=== PATIENT | male | born 1960 | race Caucasian/White ===

== ENCOUNTER 2017-02-11 22:36 | Emergency (ER) | payer MEDICAID ==
--- NOTE | 2017-02-11 22:40 | ED Physician Chart ---
Chief Complaint/HPI - Patient Information Date Seen:: 02/11/17 Time Seen:: 22:40 Chief Complaint:: low blood pressure History of Present Illness:: 56-year-old male, diabetic, complains of acute, constant, moderate, low blood pressure that he noticed at home about 30 minutes prior to arrival with systolic 94. Had some associated dizziness which is now resolved. Also reports he had an increased heart rate at 94 bpm. Says he checked his blood sugar at home and was at 110. Started 2 new diabetes medications today which he thinks may have caused the symptoms. Denies numbness, tingling, lightheadedness, chest pain, palpitations, nausea, vomiting, dysuria, gross hematuria, gross blood in stool. Historian:: Patient Review:: Nurse's Note Reviewed Review of Systems - Review of Systems Other: Complete system review otherwise unremarkable except as noted in history of present illness. Past Medical History - Past Medical History Past Medical History: DM Family History: None Social History: Non Smoker, No Alcohol, No Drug Use, Other Surgical History: None Psychiatricy History: None Medication: None Family Medical History - Family Member Mother History Unknown: Yes Physical Exam - Physical Examination Other:: INITIAL VITAL SIGNS: Reviewed by me GENERAL: Alert and interactive. No acute distress HEAD: Head is normocephalic and atraumatic EYES: EOMI. PERRL. No scleral icterus. No conjunctival injection ENT: Moist mucous membranes. NECK: Supple. No masses. Full range of motion RESPIRATORY: No tachypnea. Clear breath sounds bilaterally. No wheezing, rales, or rhonchi CV: Regular rate and rhythm. No murmurs, rubs, or gallops ABDOMEN: Soft, non-distended, non-tender. No guarding. No rebound. No masses. EXTREMITIES: No deformity. No cyanosis. No edema. SKIN: Warm and dry. No obvious rashes. NEUROLOGIC: Alert and oriented. Face is symmetric. Speech is normal. Moves all extremities equally. Motor and sensory distally intact. Labs/Radiology/EKG Results - Lab Results Results: Lab Results 02/11/17 02/11/17 02/11/17 Range/Units 23:03 23:03 23:03 WBC 9.4 (4.8-10.8) Th/cmm RBC 5.31 (4.30-5.70) Mil/cmm Hgb 13.1 L (13.2-17.3) gm/dL Hct 40.5 (39.0-49.0) % MCV 76.2 L (80-99) fl MCH 24.6 L (26.0-30.0) pg MCHC Differential 32.3 (28.0-36.0) pg RDW 13.1 (11.5-20.0) % Plt Count 217 (150-400) Th/cmm MPV 9.2 fl Neutrophils % 62.6 (40.0-80.0) % Lymphocytes % 25.8 (20.0-50.0) % Monocytes % 7.5 (2.0-10.0) % Eosinophils % 3.4 (0.0-5.0) % Basophils % 0.7 (0.0-2.0) % PT 9.1 L (9.5-11.5) SECONDS INR 0.89 (0.5-1.4) PTT (Actin FS) 23.4 L (26.0-38.0) SECONDS Sodium 135 L (136-145) mEq/L Potassium 4.0 (3.5-5.1) mEq/L Chloride 103 (98-107) mEq/L Carbon Dioxide 26.4 (21.0-31.0) mEq/L Anion Gap 9.6 (7.0-16.0) BUN 24 (7-25) mg/dL Creatinine 1.3 (0.7-1.3) mg/dL Est GFR ( Amer) > 60.0 (>90) ml/min Est GFR (Non-Af Amer) > 60.0 ml/min BUN/Creatinine Ratio 18.5 Glucose 228 H (70-105) mg/dL Calcium 10.1 (8.6-10.3) mg/dL Total Bilirubin 0.5 (0.3-1.0) mg/dL AST 22 (13-39) U/L ALT 34 (7-52) U/L Alkaline Phosphatase 42 (34-104) U/L Creatine Kinase 166 (30-223) U/L Total Protein 7.6 (6.0-8.3) gm/dL Albumin 4.3 (4.2-5.5) gm/dL Globulin 3.3 gm/dL Albumin/Globulin Ratio 1.3 (1.0-1.8) - EKG Interpretations Comments:: 12-lead EKG Interpretation by Gale Link MD: Normal Sinus Rhythm with ventricular rate of 88 beats per minute Normal axis Normal intervals No acute ST or T wave changes. No obvious STEMI ED Septic Shock - . Is Septic Shock (SBP<90, OR Lactate>4 mmol\L) present?: No Reassessment (Disposition) - Reassessment Reassessment:: Patient presents with some low blood pressure with systolic blood pressure 94 mmHg at home. Severity and associated increased heart rate which she also was 94 bpm. Very dizzy. Started 2 new diabetes medications today. Checked his blood sugar which is 110. Patient here in the ER asymptomatic. Received IV fluids. Theodore improved. Labs essentially unremarkable. Discussed all findings with the patient. Recommended follow-up with primary care 1-2 days. Return to ER precautions were given. Patient says he understands and agrees with the plan. Reassessment Condition:: Improved - Diagnosis Diagnosis:: Acute hypotension Medical screening examination Diabetes mellitus type 2 - Aftercare/Follow up Instructions Aftercare/Follow-Up Instructions:: Counseled pt regarding lab results/diagnosis & need follow up, Refer to Discharge Instructions - Patient Disposition Discharge/Transfer:: Home Time:: 00:06 Condition at Disposition:: Improved ED Discharge Plan - Patient Disposition Admit/Discharge/Transfer: PT DISCHARGED HOME Condition at Disposition: Improved Instructions: Type 2 Diabetes Mellitus, Adult, Hypotension Additional Instructions: Follow-up with your primary care physician within 1 to 2 days.
[2017-02-11] MEDS ORDERED: Sodium Chloride 0.9% 1,000 ML IV ONE (22:45)
[2017-02-11 23:11] LABS: % BASOPHILS 0.7 % (0.0-2.0); % EOSINOPHILS 3.4 % (0.0-5.0); % LYMPHOCYTES 25.8 % (20.0-50.0); % MONOCYTES 7.5 % (2.0-10.0); % NEUTROPHILS 62.6 % (40.0-80.0); HEMATOCRIT 40.5 % (39.0-49.0); HEMOGLOBIN 13.1 gm/dL (13.2-17.3); MEAN CELL VOLUME 76.2 fl (80-99); MEAN CORPUSCULAR HEMOGLOBIN 24.6 pg (26.0-30.0); MEAN CORPUSCULAR HGB CONC 32.3 pg (28.0-36.0); MEAN PLATELET VOLUME 9.2 fl; NEUTROPHILE ABSOLUTE 5.9 Th/cmm (1.8-8.0); PLATELET COUNT 217 Th/cmm (150-400); RED BLOOD COUNT 5.31 Mil/cmm (4.30-5.70); RED CELL DISTRIBUTION WIDTH 13.1 % (11.5-20.0); WHITE BLOOD COUNT 9.4 Th/cmm (4.8-10.8)
[2017-02-11 23:23] LABS: INR 0.89 (0.5-1.4); PROTHROMBIN TIME (TEST) 9.1 SECONDS (9.5-11.5)
[2017-02-11 23:24] LABS: ALB/GLOB RATIO 1.3 (1.0-1.8); ALKALINE PHOSPHATASE 42 U/L (34-104); ANION GAP 9.6 (7.0-16.0); BILIRUBIN,TOTAL 0.5 mg/dL (0.3-1.0); BUN - UREA NITROGEN 24 mg/dL (7-25); BUN/CREATININE RATIO 18.5; CALCIUM SERUM 10.1 mg/dL (8.6-10.3); CARBON DIOXIDE 26.4 mEq/L (21.0-31.0); CHLORIDE 103 mEq/L (98-107); CREATININE - SERUM 1.3 mg/dL (0.7-1.3); GLUCOSE 228 mg/dL (70-105); SGOT 22 U/L (13-39); SGPT/ALT 34 U/L (7-52); SODIUM SERUM 135 mEq/L (136-145)
== END 2017-02-12 00:53 | disposition home or self-care (01) ==
LOC: ER 22:36
DX: I95.9 Hypotension, unspecified (principal); E11.9 Type 2 diabetes mellitus without complications
CPT/HCPCS: 36415-UA; 80053-TC; 82550-TC; 82948-90; 83036-90; 85025-TC; 85610-TC; 85730-TC; 93005; J7030